=== PATIENT | female | born 1970 | race Caucasian/White ===

== ENCOUNTER 2017-01-19 13:29 | Emergency (ER) | payer MEDICAID ==
[~2017-01-19 13:29] MED LIST: HYDR-4031 PO; MULT1CAP32 PO; PROP10 PO; PROZ10 PO; QUET200T PO; VITAD1000 PO
== END 2017-01-19 13:40 | disposition left against medical advice (07) ==
LOC: EMS 13:34
DX: Z00.00 Encounter for general adult medical examination without abnormal findings (principal); Z53.21 Procedure and treatment not carried out due to patient leaving prior to being seen by health care provider

== ENCOUNTER 2017-08-13 20:23 | Inpatient (IN) | payer MEDICAID, OTHER ==
[~2017-08-13] VITALS: Ht 162.6 cm; Wt 70.3 kg
[~2017-08-13 20:23] MED LIST changes: -PROP10 PO; +PROP10TA73 PO
[2017-08-13] MEDS ORDERED: LORazepam 2 MG/ML VIAL IM ONE (22:00)
[2017-08-13] MEDS ORDERED: DiphenhydrAMINE HCL 50 MG/ML VIAL IM ONE (22:00)
[2017-08-13] MEDS ORDERED: HALOPERIDOL LACTATE 5 MG/ML VIAL IM ONE (22:00)
[2017-08-13 22:33] LABS: BASOPHILS % (AUTO) 1.2 % (0.0-2.0); EOSINOPHILS % (AUTO) 2.1 % (1.0-6.0); HEMATOCRIT 37.1 % (36-46); HEMOGLOBIN 11.8 g/dL (12.0-16.0); LYMPHOCYTES # (AUTO) 2.3 K/uL (1.0-4.8); LYMPHOCYTES % (AUTO) 34.2 % (22.0-44.0); MEAN CORPUSCULAR HEMOGLOBIN 20.5 pg (26.0-34.0); MEAN CORPUSCULAR HGB CONC 31.7 G/dL (31.0-37.0); MEAN CORPUSCULAR VOLUME 65 fL (80-100); MONOCYTES # (AUTO) 0.7 K/uL (0.1-1.0); MONOCYTES % (AUTO) 9.7 % (2.0-9.0); NEUTROPHILS # (AUTO) 3.6 K/uL (1.8-7.7); NEUTROPHILS % (AUTO) 52.8 % (40.0-70.0); PLATELET COUNT (AUTO) 234 K/uL (150-450); RED BLOOD CELL COUNT(AUTO) 5.72 MIL/uL (4.00-5.20)
[2017-08-13 22:48] LABS: ALANINE AMINOTRANSFERASE 30 U/L (12-78); ALBUMIN 3.4 g/dL (3.4-5.0); ALKALINE PHOSPHATASE 93 U/L (46-116); ANION GAP 7 mmol/L (8-16); ASPARTATE AMINOTRANSFERASE 22 U/L (15-37); BILIRUBIN,TOTAL 0.3 mg/dL (0.1-1.0); CALCIUM, TOTAL 8.4 mg/dL (8.8-10.5); CARBON DIOXIDE 28 mmol/L (22-29); CHLORIDE 107 mmol/L (98-107); GLUCOSE,RANDOM 128 mg/dL (70-110); POTASSIUM 4.1 mmol/L (3.5-5.1); SODIUM SERUM 142 mmol/L (136-145); UREA NITROGEN, BLOOD 14 mg/dL (7-18)
[2017-08-13 22:52] LABS: CREATININE 0.88 mg/dL (0.60-1.30); GLOMERULAR FILTR. RATE CALC > 60 mL/min (>60)
[2017-08-13 23:08] LABS: PLATELET MORPHOLOGY COMMENT NORMAL
[2017-08-14] MEDS ORDERED: ZOLPIDEM TARTRATE 10 MG TABLET PO PRN (00:15)
[2017-08-14 03:30] VITALS: BP 110/76
[2017-08-14 03:33] VITALS: BP 110/76
[2017-08-14 08:00] VITALS: BP 100/52
[2017-08-14 16:23] VITALS: BP 118/67
[2017-08-14] MEDS: LORazepam 2 MG TABLET PO PRN (16:41)
[2017-08-14] MEDS: HALOPERIDOL 5 MG TABLET PO PRN (16:41)
[2017-08-15] MEDS ORDERED: AZITHROMYCIN 250 MG TABLET PO ONE (08:00)
[2017-08-15] MEDS: HydrOXYzine PAMOATE 25 MG CAPSULE PO SCH ×3 (08:10→16:59)
[2017-08-15] MEDS: QUEtiapine FUMARATE 200 MG TABLET PO SCH ×3 (08:10→16:59)
[2017-08-15 08:34] VITALS: BP 108/55
[2017-08-15] MEDS: LORazepam 2 MG TABLET PO PRN (08:54)
[2017-08-15 09:18] LABS: HEMOGLOBIN A1C 5.7 % (4.5-6.2)
[2017-08-15 09:19] LABS: CHOL/HDL RATIO 2.5 (3.9-5.7)
[2017-08-15 10:40] LABS: FOLATE SERUM 15.1 ng/mL (5.4-)
[2017-08-15] MEDS: HALOPERIDOL 5 MG TABLET PO PRN (13:03)
[2017-08-16 08:38] VITALS: BP 85/55
[2017-08-16] MEDS: QUEtiapine FUMARATE 200 MG TABLET PO SCH ×3 (10:29→16:41)
[2017-08-16] MEDS: AZITHROMYCIN 250 MG TABLET PO SCH (10:29)
[2017-08-16] MEDS: HydrOXYzine PAMOATE 25 MG CAPSULE PO SCH ×3 (10:29→16:41)
[2017-08-16] MEDS: CHOLECALCIFEROL (VIT D3) 5,000 UNITS CAPSULE PO SCH (10:30)
[2017-08-16] MEDS: LORazepam 2 MG TABLET PO PRN (16:41)
[2017-08-16 18:39] VITALS: BP 99/85
[2017-08-17] MEDS: HALOPERIDOL 5 MG TABLET PO PRN (08:29)
[2017-08-17] MEDS: LORazepam 2 MG TABLET PO PRN (08:29)
[2017-08-17] MEDS: HydrOXYzine PAMOATE 25 MG CAPSULE PO SCH ×3 (08:29→17:04)
[2017-08-17] MEDS: CHOLECALCIFEROL (VIT D3) 5,000 UNITS CAPSULE PO SCH (08:29)
[2017-08-17] MEDS: AZITHROMYCIN 250 MG TABLET PO SCH (08:29)
[2017-08-17] MEDS: QUEtiapine FUMARATE 200 MG TABLET PO SCH ×3 (08:35→17:04)
[2017-08-17 08:42] VITALS: BP 108/61
[2017-08-17 16:12] VITALS: BP 106/62
[2017-08-18 08:44] VITALS: BP 100/63
[2017-08-18] MEDS: CHOLECALCIFEROL (VIT D3) 5,000 UNITS CAPSULE PO SCH (09:45)
[2017-08-18] MEDS: AZITHROMYCIN 250 MG TABLET PO SCH (09:45)
[2017-08-18] MEDS: HydrOXYzine PAMOATE 25 MG CAPSULE PO SCH ×3 (09:45→17:29)
[2017-08-18] MEDS: QUEtiapine FUMARATE 200 MG TABLET PO SCH ×3 (09:46→17:29)
[2017-08-18] MEDS: LORazepam 2 MG TABLET PO PRN (17:29)
[2017-08-18] MEDS: HALOPERIDOL 5 MG TABLET PO PRN (17:29)
[2017-08-18 17:56] VITALS: BP 121/66
[2017-08-19 06:39] VITALS: BP 96/59
[2017-08-19] MEDS: HydrOXYzine PAMOATE 25 MG CAPSULE PO SCH ×3 (08:13→16:29)
[2017-08-19] MEDS: QUEtiapine FUMARATE 200 MG TABLET PO SCH ×3 (08:13→16:29)
[2017-08-19] MEDS: CHOLECALCIFEROL (VIT D3) 5,000 UNITS CAPSULE PO SCH (08:13)
[2017-08-19] MEDS: AZITHROMYCIN 250 MG TABLET PO SCH (08:13)
[2017-08-19 09:05] VITALS: BP 107/68
[2017-08-19] MEDS ORDERED: BISACODYL 5 MG EC TABLET PO PRN (09:45)
[2017-08-19] MEDS ORDERED: LACTULOSE 20 GM/30 ML SOLUTION UDCUP PO PRN (09:45)
[2017-08-19] MEDS: DOCUSATE SODIUM 250 MG CAPSULE PO SCH ×2 (09:51→16:29)
[2017-08-19] MEDS: LORazepam 2 MG TABLET PO PRN (10:02)
[2017-08-19 16:30] VITALS: BP 113/74
[2017-08-20] MEDS: DOCUSATE SODIUM 250 MG CAPSULE PO SCH ×2 (08:28→17:26)
[2017-08-20] MEDS: QUEtiapine FUMARATE 200 MG TABLET PO SCH ×3 (08:28→17:26)
[2017-08-20] MEDS: CHOLECALCIFEROL (VIT D3) 5,000 UNITS CAPSULE PO SCH (08:28)
[2017-08-20] MEDS: HydrOXYzine PAMOATE 25 MG CAPSULE PO SCH ×3 (08:28→17:26)
[2017-08-20 08:32] VITALS: BP 98/56
[2017-08-20] MEDS: LORazepam 2 MG TABLET PO PRN (11:45)
[2017-08-20 16:37] VITALS: BP 112/64
[2017-08-20] MEDS: HALOPERIDOL 5 MG TABLET PO PRN (17:27)
[2017-08-21 05:30] VITALS: BP 100/80
[2017-08-21 08:15] VITALS: BP 103/62
[2017-08-21] MEDS: DOCUSATE SODIUM 250 MG CAPSULE PO SCH ×2 (09:47→16:42)
[2017-08-21] MEDS: CHOLECALCIFEROL (VIT D3) 5,000 UNITS CAPSULE PO SCH (09:47)
[2017-08-21] MEDS: HydrOXYzine PAMOATE 25 MG CAPSULE PO SCH ×3 (09:47→16:42)
[2017-08-21] MEDS: QUEtiapine FUMARATE 200 MG TABLET PO SCH ×3 (09:47→16:43)
[2017-08-21 16:23] VITALS: BP 100/62
[2017-08-21 16:40] VITALS: BP 108/68
[2017-08-22 05:29] VITALS: BP 102/61
[2017-08-22] MEDS: LORazepam 2 MG TABLET PO PRN (06:16)
[2017-08-22] MEDS: HALOPERIDOL 5 MG TABLET PO PRN (06:17)
[2017-08-22 08:59] VITALS: BP 121/65
[2017-08-22] MEDS: HydrOXYzine PAMOATE 25 MG CAPSULE PO SCH ×3 (09:02→17:22)
[2017-08-22] MEDS: CHOLECALCIFEROL (VIT D3) 5,000 UNITS CAPSULE PO SCH (09:02)
[2017-08-22] MEDS: QUEtiapine FUMARATE 200 MG TABLET PO SCH ×3 (09:03→17:22)
[2017-08-22] MEDS: DOCUSATE SODIUM 250 MG CAPSULE PO SCH ×2 (09:03→16:22)
[2017-08-22] MEDS ORDERED: ACETAMINOPHEN 325 MG TABLET PO PRN (15:45)
[2017-08-22 16:23] VITALS: BP 104/64
[2017-08-22 16:32] VITALS: BP 104/64
[2017-08-22 17:22] VITALS: BP 102/63
[2017-08-23 04:36] VITALS: BP 101/60
[2017-08-23] MEDS: HydrOXYzine PAMOATE 25 MG CAPSULE PO SCH ×3 (08:35→16:31)
[2017-08-23] MEDS: QUEtiapine FUMARATE 200 MG TABLET PO SCH ×3 (08:35→16:31)
[2017-08-23] MEDS: CHOLECALCIFEROL (VIT D3) 5,000 UNITS CAPSULE PO SCH (08:35)
[2017-08-23] MEDS: DOCUSATE SODIUM 250 MG CAPSULE PO SCH ×2 (08:35→16:30)
[2017-08-23 08:36] VITALS: BP 112/68
[2017-08-23 16:07] VITALS: BP 108/67
[2017-08-24 04:00] VITALS: BP 110/70
[2017-08-24] MEDS: LORazepam 2 MG TABLET PO PRN ×2 (05:20→10:47)
[2017-08-24 08:09] VITALS: BP 103/61
[2017-08-24] MEDS: QUEtiapine FUMARATE 200 MG TABLET PO SCH ×3 (08:09→16:09)
[2017-08-24] MEDS: HydrOXYzine PAMOATE 25 MG CAPSULE PO SCH ×3 (08:09→16:09)
[2017-08-24] MEDS: CHOLECALCIFEROL (VIT D3) 5,000 UNITS CAPSULE PO SCH (08:09)
[2017-08-24] MEDS: DOCUSATE SODIUM 250 MG CAPSULE PO SCH ×2 (08:09→16:09)
[2017-08-24] MEDS: HALOPERIDOL 5 MG TABLET PO PRN (10:47)
[2017-08-24 16:19] VITALS: BP 111/80
[2017-08-25 05:39] VITALS: BP 100/71
[2017-08-25] MEDS: HALOPERIDOL 5 MG TABLET PO PRN (05:40)
[2017-08-25 08:36] VITALS: BP 100/67
[2017-08-25] MEDS: DOCUSATE SODIUM 250 MG CAPSULE PO SCH ×2 (08:41→16:36)
[2017-08-25] MEDS: HydrOXYzine PAMOATE 25 MG CAPSULE PO SCH ×3 (08:41→16:36)
[2017-08-25] MEDS: QUEtiapine FUMARATE 200 MG TABLET PO SCH ×3 (08:41→16:36)
[2017-08-25] MEDS: CHOLECALCIFEROL (VIT D3) 5,000 UNITS CAPSULE PO SCH (08:41)
[2017-08-25] MEDS: LORazepam 2 MG TABLET PO PRN (11:09)
[2017-08-25 16:04] VITALS: BP 105/62
[2017-08-26 06:44] VITALS: BP 124/74
[2017-08-26 08:45] VITALS: BP 106/74
[2017-08-26] MEDS: HALOPERIDOL 5 MG TABLET PO PRN (09:08)
[2017-08-26] MEDS: QUEtiapine FUMARATE 200 MG TABLET PO SCH (09:08)
[2017-08-26] MEDS: HydrOXYzine PAMOATE 25 MG CAPSULE PO SCH (09:08)
[2017-08-26] MEDS: DOCUSATE SODIUM 250 MG CAPSULE PO SCH (09:08)
[2017-08-26] MEDS: LORazepam 2 MG TABLET PO PRN (09:08)
[2017-08-26] MEDS ORDERED: DOCU250C91 PO (10:33)
== END 2017-08-26 11:46 | disposition home or self-care (01) | DRG 750 ==
LOC: EMS 21:56 → B3A 08-14 00:30
PROVIDERS: ADMIT Psychiatry & Neurology Psychiatry; ATTEND Psychiatry & Neurology Psychiatry
DX: F25.9 Schizoaffective disorder, unspecified (principal); E55.9 Vitamin D deficiency, unspecified; D64.9 Anemia, unspecified; F41.9 Anxiety disorder, unspecified; F12.90 Cannabis use, unspecified, uncomplicated; F31.9 Bipolar disorder, unspecified; Z98.51 Tubal ligation status
CPT/HCPCS: 80074; 82306; 82607; 82746; 83036; 96372; 99285; G0480; J1200; J1630; J2060

== ENCOUNTER 2018-05-13 02:14 | Emergency (ER) | payer MEDICAID, OTHER ==
[~2018-05-13] VITALS: Ht 165.1 cm; Wt 76.4 kg
[~2018-05-13 02:14] MED LIST changes: +DOCU250C91 PO; -MULT1CAP32 PO; -PROP10TA73 PO; -PROZ10 PO; -VITAD1000 PO
[2018-05-13] MEDS ORDERED: SERT50TA12 PO (03:53)
[2018-05-13 03:54] LABS: GLUCOSE,POINT OF CARE 160 MG/DL (70-110)
[2018-05-13 04:06] VITALS: BP 142/68
[2018-05-13] MEDS ORDERED: QUEtiapine FUMARATE 100 MG TABLET PO ONE (04:15)
[2018-05-13] MEDS ORDERED: HydrOXYzine PAMOATE 25 MG CAPSULE PO ONE (04:15)
== END 2018-05-13 05:00 | disposition home or self-care (01) ==
LOC: EMS 02:14
DX: F20.9 Schizophrenia, unspecified (principal); F41.9 Anxiety disorder, unspecified; F31.9 Bipolar disorder, unspecified; Z98.51 Tubal ligation status; Z79.899 Other long term (current) drug therapy

== ENCOUNTER 2019-05-24 17:49 | Emergency (ER) | payer OTHER ==
[~2019-05-24] VITALS: Ht 157.5 cm; Wt 82.5 kg
[~2019-05-24 17:49] MED LIST changes: -DOCU250C91 PO; +SERT50TA12 PO
[2019-05-24] MEDS ORDERED: HALO2 PO (18:54)
[2019-05-24] MEDS ORDERED: ACETAMINOPHEN/CODEINE 300-30 MG TABLET PO ONE (19:45)
[2019-05-24 19:56] VITALS: BP 134/80
== END 2019-05-24 20:04 | disposition home or self-care (01) ==
LOC: EMS 17:50
DX: S22.31XA Fracture of one rib, right side, initial encounter for closed fracture (principal); E11.9 Type 2 diabetes mellitus without complications; F41.9 Anxiety disorder, unspecified; F31.9 Bipolar disorder, unspecified; F20.9 Schizophrenia, unspecified; Z98.51 Tubal ligation status; Z79.899 Other long term (current) drug therapy; Y04.0XXA Assault by unarmed brawl or fight, initial encounter; Y93.89 Activity, other specified; Y92.89 Other specified places as the place of occurrence of the external cause; Y99.8 Other external cause status
CPT/HCPCS: 71101

== ENCOUNTER 2025-02-01 19:20 | Inpatient (IN) | payer MEDICAID ==
[~2025-02-01] VITALS: Ht 165.1 cm; Wt 69.4 kg
[~2025-02-01 19:20] MED LIST changes: +HALO2 PO; -HYDR-4031 PO; +HYDR-4808 PO; +SERT-158 PO; -SERT50TA12 PO
[2025-02-01] MEDS ORDERED: GuaiFENesin/D-METHORPHAN/PHENYLEPH 5 ML LIQUID ORAL.SYG PO PRN (20:00)
[2025-02-01] MEDS ORDERED: PROMETHAZINE HCL 25 MG TABLET PO PRN (20:00)
[2025-02-01] MEDS: MELATONIN 5 MG TABLET PO SCH (21:00)
[2025-02-01 22:13] VITALS: BP 101/70; PULSE 91; RESP 16; TEMP 97.7; O2SAT 98
[2025-02-01 22:41] LABS: GLUCOMETER DEV NAME(LOC) BV3N.2; GLUCOSE,POINT OF CARE 151 MG/DL (70-110)
[2025-02-01 22:53] VITALS: BP 101/70; PULSE 91; RESP 16; TEMP 97.7; O2SAT 98
[2025-02-01] MEDS ORDERED: PNEUMOCOCCAL VACCINE POLYVALENT 0.5 ML SYRINGE [PPSV23] IM. ONE (23:30)
[2025-02-02 08:17] VITALS: BP 96/70; PULSE 91; RESP 17; TEMP 97.3; O2SAT 100
[2025-02-02] MEDS: THIAMINE 100 MG TABLET PO SCH (10:07)
[2025-02-02] MEDS: FOLIC ACID 1 MG TABLET PO SCH (10:08)
[2025-02-02] MEDS: MULTIVITAMINS WITH MINERALS, THERAPEUTIC TABLET PO SCH (10:08)
[2025-02-02] MEDS: NALTREXONE HCL 50 MG TABLET PO SCH (10:12)
[2025-02-02] MEDS: PALIPERIDONE PALMITATE 234 MG/1.5 ML SYRINGE IM ONE (10:13)
[2025-02-02] MEDS: ESCITALOPRAM OXALATE 10 MG TABLET PO SCH (10:13)
[2025-02-03] MEDS: ACETAMINOPHEN 325 MG TABLET PO PRN (06:22)
[2025-02-03 06:38] VITALS: BP 116/79; PULSE 86; RESP 18; TEMP 97.6; O2SAT 100
[2025-02-03 07:22] VITALS: RESP 16
[2025-02-03 08:23] VITALS: BP 100/61; PULSE 67; RESP 16; TEMP 97.2; O2SAT 100
[2025-02-03] MEDS: ETHYL ALCOHOL 62% ANTISEPTIC NASAL SANITIZER 0.6 ML AMPUL NASAL SCH (10:30)
[2025-02-03] MEDS: CYCLOBENZAPRINE HCL 10 MG TABLET PO SCH (13:28)
[2025-02-03 20:11] VITALS: BP 106/74; PULSE 73; RESP 17; TEMP 97.2; O2SAT 98
[2025-02-03] MEDS: CHLORHEXIDINE GLUCONATE 2% TOWELETTE [2'S/6'S] TP SCH (21:33)
[2025-02-04 08:12] LABS: PLATELET COUNT (AUTO) 222 K/uL (150-450); RED BLOOD CELL COUNT(AUTO) 5.96 MIL/uL (4.00-5.20); RED CELL DISTRIBUTION WIDTH 15.4 % (11.5-14.5); WHITE BLOOD COUNT (AUTO) 4.9 K/uL (4.5-11.0)
[2025-02-04 08:24] VITALS: BP 100/70; PULSE 85; RESP 18; TEMP 98; O2SAT 100
[2025-02-04] MEDS: ESCITALOPRAM OXALATE 10 MG TABLET PO SCH (08:24)
[2025-02-04 08:46] LABS: ASPARTATE AMINOTRANSFERASE 26 U/L (15-37); CALCIUM, TOTAL 8.7 mg/dL (8.8-10.5); CHOL/HDL RATIO 2.9 (3.9-5.7); CREATININE 0.88 mg/dL (0.60-1.30); GLOMERULAR FILTR. RATE CALC > 60 mL/min (>60); GLUCOSE,RANDOM 116 mg/dL (70-110); LDL CHOL (CALC.) 98 mg/dL (0-130); SODIUM SERUM 139 mmol/L (136-145); TOTAL PROTEIN, SERUM 6.6 g/dL (6.4-8.2); UREA NITROGEN, BLOOD 12 mg/dL (7-18)
[2025-02-04 08:54] LABS: BAND NEUTROPHILS % (MANUAL) 1 % (0-5); LYMPHOCYTES % (MANUAL) 31 % (22-44); MONOCYTES % (MANUAL) 3 % (2-9); SEGMENTED NEUTROPHILS % 65 % (40-70)
[2025-02-04 08:55] LABS: RBC MORPHOLOGY COMMENT ABNORMAL R
[2025-02-04 20:11] VITALS: BP 110/65; PULSE 88; RESP 18; TEMP 97.2; O2SAT 97
[2025-02-05 08:05] VITALS: BP 100/70; PULSE 85; RESP 18; TEMP 98; O2SAT 99
[2025-02-05 20:33] VITALS: BP 112/78; PULSE 85; RESP 17; TEMP 97.3; O2SAT 100
[2025-02-06 08:03] VITALS: BP 109/70; PULSE 98; RESP 16; TEMP 98; O2SAT 100
[2025-02-06] MEDS: PALIPERIDONE PALMITATE 156 MG/ML SYRINGE IM ONE (12:40)
[2025-02-06 21:59] VITALS: BP 110/75; PULSE 80; RESP 18; TEMP 97.8; O2SAT 100
[2025-02-07 09:23] VITALS: BP 111/83; PULSE 85; RESP 17; TEMP 98.1; O2SAT 100
[2025-02-07 20:16] VITALS: BP 109/71; PULSE 78; RESP 18; TEMP 98.1; O2SAT 99
[2025-02-08 01:37] VITALS: BP 136/72; PULSE 69; RESP 20; TEMP 98
[2025-02-08 02:37] VITALS: RESP 18
[2025-02-08 08:26] VITALS: BP 116/76; PULSE 88; RESP 16; TEMP 97.3; O2SAT 100
[2025-02-08 16:14] VITALS: BP 121/82; PULSE 82; RESP 16; TEMP 97.6
[2025-02-08 20:22] VITALS: BP 100/66; PULSE 92; RESP 17; TEMP 97.7; O2SAT 99
[2025-02-09 08:57] VITALS: BP 111/73; PULSE 86; RESP 16; TEMP 97.4; O2SAT 100
[2025-02-09 20:11] VITALS: BP 102/76; PULSE 81; RESP 18; TEMP 96.8; O2SAT 99
[2025-02-10 08:18] VITALS: BP 101/70; PULSE 93; RESP 17; TEMP 96.8; O2SAT 100
[2025-02-10] MEDS: IBUPROFEN 600 MG TABLET PO PRN (16:29)
[2025-02-10] MEDS: ACETAMINOPHEN 325 MG TABLET PO PRN (16:29)
[2025-02-10] MEDS: GABAPENTIN 300 MG CAPSULE PO SCH (20:35)
[2025-02-10 20:44] VITALS: RESP 16
[2025-02-11 08:33] VITALS: BP 93/71; PULSE 86; RESP 16; TEMP 97; O2SAT 99
[2025-02-11] MEDS: MAGNESIUM HYDROXIDE SUSPENSION 30 ML UDCUP PO PRN (09:37)
[2025-02-11 12:50] VITALS: PULSE 78; RESP 17; O2SAT 98
[2025-02-11] MEDS: IBUPROFEN 600 MG TABLET PO PRN (12:50)
[2025-02-11 13:50] VITALS: RESP 17; O2SAT 99
[2025-02-11 19:49] VITALS: BP 104/76; PULSE 82; RESP 16; TEMP 97.6; O2SAT 98
[2025-02-11 20:09] VITALS: BP 123/80; PULSE 88; RESP 17; TEMP 97; O2SAT 98
[2025-02-11 20:49] VITALS: RESP 17; O2SAT 98
[2025-02-11] MEDS: DOCUSATE SODIUM 250 MG CAPSULE PO SCH (23:55)
[2025-02-12 08:25] VITALS: BP 123/77; PULSE 86; RESP 17; TEMP 98; O2SAT 100
[2025-02-12] MEDS: GABAPENTIN 300 MG CAPSULE PO PRN (17:59)
[2025-02-12 18:00] VITALS: RESP 17
[2025-02-12 19:00] VITALS: RESP 17
[2025-02-12 20:51] VITALS: BP 113/85; PULSE 92; RESP 18; TEMP 97.7; O2SAT 100
[2025-02-13 08:06] VITALS: BP 105/69; PULSE 100; RESP 18; TEMP 97.2; O2SAT 99
[2025-02-13 20:29] VITALS: BP 104/68; PULSE 87; RESP 16; TEMP 97.1; O2SAT 99
[2025-02-14 08:09] VITALS: BP 93/70; PULSE 80; RESP 17; TEMP 97; O2SAT 100
[2025-02-14 08:10] VITALS: RESP 18
[2025-02-14 09:10] VITALS: RESP 17
[2025-02-14 11:19] VITALS: RESP 18
[2025-02-14 12:19] VITALS: RESP 16
[2025-02-14 20:14] VITALS: BP 101/67; PULSE 106; RESP 18; TEMP 97.6; O2SAT 98
[2025-02-14] MEDS ORDERED: IBUPROFEN 600 MG TABLET PO PRN (21:30)
[2025-02-15 08:07] VITALS: BP 110/73; PULSE 98; RESP 18; TEMP 97.3; O2SAT 100
[2025-02-15 10:19] VITALS: RESP 18
[2025-02-15 11:19] VITALS: RESP 18
[2025-02-15 21:21] VITALS: RESP 17
[2025-02-16 08:06] VITALS: BP 89/63; PULSE 100; RESP 16; TEMP 97.6; O2SAT 99
[2025-02-16 09:52] VITALS: RESP 18
[2025-02-16 10:52] VITALS: RESP 17
[2025-02-16 20:21] VITALS: BP 132/83; PULSE 87; RESP 16; TEMP 98; O2SAT 100
[2025-02-17 08:13] VITALS: BP 104/70; PULSE 88; RESP 17; TEMP 97.4; O2SAT 100
[2025-02-17 16:40] VITALS: BP 121/72; PULSE 86; RESP 17; TEMP 97.6
[2025-02-17 18:35] VITALS: BP 125/77; PULSE 83; RESP 17; TEMP 97.6
[2025-02-17 19:30] VITALS: RESP 17
[2025-02-17 20:54] VITALS: BP 130/86; PULSE 92; RESP 18; TEMP 97.1; O2SAT 100
[2025-02-18 08:20] VITALS: BP 95/68; PULSE 99; RESP 16; TEMP 97.6; O2SAT 100
[2025-02-18 15:51] VITALS: RESP 18
[2025-02-18] MEDS: BENZTROPINE MESYLATE 2 MG TABLET PO SCH (16:40)
[2025-02-18 16:51] VITALS: RESP 17
[2025-02-18 20:22] VITALS: BP 117/75; PULSE 93; TEMP 97.5
[2025-02-19 07:01] VITALS: BP 97/72; PULSE 89; RESP 18; TEMP 97.3; O2SAT 98
[2025-02-19] MEDS: ACETAMINOPHEN 325 MG TABLET PO PRN (07:09)
[2025-02-19 08:26] VITALS: BP 97/64; PULSE 90; RESP 16; TEMP 96.6; O2SAT 97
[2025-02-19 20:17] VITALS: BP 126/73; PULSE 87; RESP 17; TEMP 98.1; O2SAT 97
[2025-02-20 07:56] VITALS: BP 90/62; PULSE 95; RESP 17; TEMP 97.2; O2SAT 99
[2025-02-20 09:28] VITALS: RESP 17
[2025-02-20 10:28] VITALS: RESP 18
[2025-02-20 12:41] VITALS: BP 95/65; PULSE 99; RESP 17; TEMP 97.2; O2SAT 98
[2025-02-20 20:06] VITALS: BP 98/74; PULSE 125; RESP 18; TEMP 97.7; O2SAT 98
[2025-02-21 08:15] VITALS: RESP 17
[2025-02-21 08:22] VITALS: BP 100/72; PULSE 94; RESP 16; TEMP 96.9; O2SAT 100
[2025-02-21 09:15] VITALS: RESP 16
[2025-02-21 16:18] VITALS: BP 111/79; PULSE 86; RESP 17; TEMP 97.8
[2025-02-21 20:00] VITALS: BP 107/73; PULSE 98; RESP 17; TEMP 98.5
[2025-02-22 08:35] VITALS: BP 69/56; PULSE 94; RESP 16; TEMP 96.7; O2SAT 98
[2025-02-22 09:30] VITALS: BP 97/69; PULSE 96; RESP 18; TEMP 97.6; O2SAT 99
[2025-02-22 16:38] VITALS: BP 103/70; PULSE 88; RESP 18; TEMP 97.8
[2025-02-22] MEDS: BENZTROPINE MESYLATE 1 MG TABLET PO SCH (16:42)
[2025-02-22] MEDS: CYCLOBENZAPRINE HCL 10 MG TABLET PO SCH (16:42)
[2025-02-22 20:13] VITALS: BP 99/66; PULSE 89; RESP 18; TEMP 97; O2SAT 98
[2025-02-23 08:25] VITALS: BP 89/69; PULSE 89; RESP 17; TEMP 97.6; O2SAT 99
[2025-02-23 08:55] VITALS: BP 109/75; PULSE 86; RESP 16; TEMP 97.1; O2SAT 99
[2025-02-23 20:45] VITALS: BP 105/68; PULSE 71; RESP 17; TEMP 97.7; O2SAT 98
[2025-02-23 22:15] VITALS: RESP 17
[2025-02-23 23:15] VITALS: RESP 16
[2025-02-24 08:12] VITALS: BP 93/69; PULSE 92; RESP 16; TEMP 97.2; O2SAT 100
[2025-02-24 17:34] VITALS: RESP 17; O2SAT 98
[2025-02-24 18:34] VITALS: RESP 16
[2025-02-24 20:26] VITALS: BP 112/69; PULSE 81; RESP 17; TEMP 97.5; O2SAT 100
[2025-02-25 06:30] VITALS: RESP 20
[2025-02-25 08:18] VITALS: BP 98/69; PULSE 91; RESP 17; TEMP 97; O2SAT 95
[2025-02-25 12:56] VITALS: RESP 18
[2025-02-25 13:58] VITALS: RESP 18
[2025-02-25 20:09] VITALS: BP 103/70; PULSE 89; RESP 17; TEMP 97.7
[2025-02-26 01:01] VITALS: BP 107/66; PULSE 68; RESP 20; TEMP 98; O2SAT 98
[2025-02-26 02:00] VITALS: RESP 18
[2025-02-26 08:06] VITALS: BP 105/64; PULSE 94; RESP 16; TEMP 97.4; O2SAT 97
[2025-02-26 11:28] VITALS: BP 110/75; PULSE 83; RESP 16; TEMP 97.5; O2SAT 98
[2025-02-26 12:44] VITALS: RESP 16
[2025-02-26 20:07] VITALS: BP 104/75; PULSE 89; RESP 17; TEMP 98.1; O2SAT 99
[2025-02-27 08:10] VITALS: BP 81/64; PULSE 88; RESP 16; TEMP 97.6; O2SAT 100
[2025-02-27 20:14] VITALS: BP 93/73; PULSE 91; RESP 17; TEMP 97.3; O2SAT 97
[2025-02-28 08:17] VITALS: BP 79/61; PULSE 93; RESP 16; TEMP 97.6; O2SAT 98
[2025-02-28 09:35] VITALS: BP 95/69; PULSE 89; RESP 16; TEMP 97.2; O2SAT 100
[2025-02-28 20:18] VITALS: BP 113/77; PULSE 89; RESP 18; TEMP 97.7; O2SAT 97
[2025-02-28] MEDS: MAG HYDROX/ALUMINUM HYD/SIMETH ES 30 ML SUSPENSION UDCUP PO PRN (22:02)
[2025-03-01 08:21] VITALS: BP 90/62; PULSE 86; RESP 16; TEMP 97.4; O2SAT 100
[2025-03-01] MEDS: BENZTROPINE MESYLATE 0.5 MG TABLET PO SCH (08:23)
[2025-03-01 16:30] VITALS: BP 105/68; PULSE 83; RESP 17; TEMP 97.6
[2025-03-01 20:40] VITALS: BP 112/74; PULSE 88; RESP 18; TEMP 97.9; O2SAT 98
[2025-03-02 06:11] VITALS: RESP 17
[2025-03-02 08:18] VITALS: BP 82/58; PULSE 91; RESP 16; TEMP 97.7; O2SAT 100
[2025-03-02 20:07] VITALS: BP 117/80; PULSE 85; RESP 18; TEMP 97.3; O2SAT 99
[2025-03-03 08:12] VITALS: BP 87/68; PULSE 92; RESP 16; TEMP 98; O2SAT 100
[2025-03-03 08:30] VITALS: BP 91/67; RESP 16; O2SAT 100
[2025-03-03 20:07] VITALS: BP 103/70; PULSE 89; RESP 18; TEMP 97.7; O2SAT 96
[2025-03-04 08:19] VITALS: BP 99/72; PULSE 78; RESP 16; TEMP 97.9; O2SAT 97
[2025-03-04] MEDS: LURASIDONE HCL 40 MG TABLET PO SCH (18:13)
[2025-03-04 20:13] VITALS: BP 115/84; PULSE 85; RESP 17; TEMP 98.1; O2SAT 99
[2025-03-05 11:27] VITALS: BP_SYST 106; BP_SYST 70; BP_DIAS 56; BP_DIAS 72; PULSE 100; RESP 16; TEMP 98.7; O2SAT 98
[2025-03-05] MEDS: BACITRACIN 28 GM OINTMENT TP SCH (18:22)
[2025-03-05 20:46] VITALS: BP 100/73; PULSE 90; RESP 18; TEMP 98; O2SAT 100
[2025-03-06 08:21] VITALS: BP 99/60; PULSE 90; RESP 16; TEMP 97.8; O2SAT 98
[2025-03-06 21:56] VITALS: BP 110/69; PULSE 73; RESP 16; TEMP 97.5; O2SAT 97
[2025-03-07 08:21] VITALS: BP 105/72; PULSE 98; RESP 16; TEMP 96.8; O2SAT 99
[2025-03-07] MEDS ORDERED: LURA40TA2 PO (11:04)
[2025-03-07] MEDS ORDERED: BENZ0.5T52 PO (11:04)
[2025-03-07] MEDS ORDERED: CHLO100T42 PO (11:04)
[2025-03-07] MEDS ORDERED: MELA5TAB40 PO (11:04)
[2025-03-07] MEDS ORDERED: NALT50TA33 PO (11:04)
[2025-03-07] MEDS ORDERED: CYCL-448 PO (11:24)
[2025-03-09 10:07] LABS: CHLORPROMAZINE 163 ng/mL (30-300)
== END 2025-03-07 17:03 | disposition home or self-care (01) | DRG 750 ==
LOC: B3A 20:37
PROVIDERS: ADMIT Psychiatry & Neurology Psychiatry; ATTEND Psychiatry & Neurology Psychiatry
PROC: GZHZZZZ Group Psychotherapy (ICD-10-PCS; principal; 2025-02-02)
PROC: GZ58ZZZ Individual Psychotherapy, Cognitive-Behavioral (ICD-10-PCS; 2025-02-02)
PROC: GZ56ZZZ Individual Psychotherapy, Supportive (ICD-10-PCS; 2025-02-02)
DX: F25.9 Schizoaffective disorder, unspecified (principal); E11.9 Type 2 diabetes mellitus without complications; F41.9 Anxiety disorder, unspecified; G47.00 Insomnia, unspecified; J44.9 Chronic obstructive pulmonary disease, unspecified; F17.200 Nicotine dependence, unspecified, uncomplicated; Z63.9 Problem related to primary support group, unspecified; Z59.00 Homelessness unspecified; Z65.3 Problems related to other legal circumstances; Z55.9 Problems related to education and literacy, unspecified; Z91.199 Patient's noncompliance with other medical treatment and regimen due to unspecified reason
CPT/HCPCS: 80053; 80061; 80342; 82962; 83036; 84439; 84443; 85007; 85027; 86592; 87081